=== PATIENT | male | born 1960 | race Caucasian/White ===

== ENCOUNTER 2016-10-26 07:59 | Emergency (ER) | payer MEDICAID ==
[~2016-10-26] VITALS: Ht 185.4 cm; Wt 65.8 kg
[2016-10-26 08:05] VITALS: BP 138/97
[2016-10-26] MEDS ORDERED: LIDOCAINE 1% HCL (LOCAL ANESTH.) INJ 20ML MDV IN ONE (08:15)
[2016-10-26] MEDS ORDERED: NEOMYCIN-BACITRACIN-POLYM UNITDOSE PKG TOP OINT TOP ONE (08:30)
== END 2016-10-26 08:52 | disposition home or self-care (01) ==
LOC: ER 07:59
DX: S51.811A Laceration without foreign body of right forearm, initial encounter (principal); Z88.0 Allergy status to penicillin; J45.909 Unspecified asthma, uncomplicated; F17.210 Nicotine dependence, cigarettes, uncomplicated; F12.10 Cannabis abuse, uncomplicated; W18.39XA Other fall on same level, initial encounter; Y93.89 Activity, other specified; Y92.89 Other specified places as the place of occurrence of the external cause; Y99.8 Other external cause status
CPT/HCPCS: 12002; 99283; J2001

== ENCOUNTER 2017-07-18 12:41 | Emergency (ER) | payer MEDICAID ==
[~2017-07-18] VITALS: Ht 185.4 cm; Wt 67.1 kg
[2017-07-18 12:59] VITALS: BP 144/101
== END 2017-07-18 14:39 | disposition home or self-care (01) ==
LOC: ER 12:44
DX: S76.012A Strain of muscle, fascia and tendon of left hip, initial encounter (principal); S76.912A Strain of unspecified muscles, fascia and tendons at thigh level, left thigh, initial encounter; J45.909 Unspecified asthma, uncomplicated; F17.210 Nicotine dependence, cigarettes, uncomplicated; M79.89 Other specified soft tissue disorders; V43.52XA Car driver injured in collision with other type car in traffic accident, initial encounter; Y93.89 Activity, other specified; Y92.89 Other specified places as the place of occurrence of the external cause; Y99.8 Other external cause status; Z88.0 Allergy status to penicillin
CPT/HCPCS: 72170

== ENCOUNTER 2018-06-23 09:02 | Emergency (ER) | payer SELFPAY ==
[~2018-06-23] VITALS: Ht 177.8 cm; Wt 77.1 kg
[2018-06-23 10:07] LABS: Lymphocytes # (auto) 2.2 uL
[2018-06-23 10:09] LABS: Basophils # (auto) 0.1 uL; Basophils % (auto) 1.1 % (0.0-2.0); Eosinophils # (auto) 0.2 uL; Eosinophils % (auto) 3.2 % (0.0-7.0); Hematocrit 49.4 % (41.0-53.0); Hemoglobin 16.7 g/dL (13.5-17.5); Lymphocytes % (auto) 31.9 % (10.0-50.0); Mean Corpuscular Hemoglobin 34.6 pg (28.0-32.0); Mean Corpuscular Hgb Conc. 33.8 g/dL (32.0-36.0); Mean Corpuscular Volume 102.3 fL (80.0-100.0); Monocytes # (auto) 0.7 uL; Monocytes % (auto) 9.5 % (0.0-12.0); Neutrophils # (auto) 3.8 uL; Neutrophils % (auto) 54.3 % (37.0-80.0); Nucleated Red Blood Cells % 0.1 %; Platelet Count (auto) 274 10^3/uL (140-450); Red Blood Cells 4.83 10^6/uL (4.5-5.90)
[2018-06-23 10:48] LABS: Albumin 3.7 g/dL (3.4-5.0); BUN/Creatinine Ratio 19.6; Calcium 8.2 mg/dL (8.5-10.1); Magnesium 2.6 mg/dL (1.6-2.6); Potassium 3.9 mmol/L (3.5-5.1); Salicylate 2.6 mg/dL (2.8-20.0)
[2018-06-23 10:50] LABS: Acetaminophen < 2.0 ug/mL (10-30)
[2018-06-23 10:51] LABS: Bilirubin, Total 0.6 mg/dL (0.2-1.0); Total Protein 6.9 g/dL (6.4-8.2)
[2018-06-23] MEDS ORDERED: SODIUM CHLORIDE 0.9% 1,000 ML IV ONE ×2 (10:59)
[2018-06-23] MEDS ORDERED: LORazepam 2MG/ML-1ML VIAL IV ONE (11:00)
[2018-06-23] MEDS ORDERED: IBUPROFEN 800 MG TAB PO ONE (11:15)
[2018-06-23 11:43] LABS: Amphetamine Screen, Urine POSITIVE (NEGATIVE); Cannabinoid Screen, Urine POSITIVE (NEGATIVE)
[2018-06-23 11:52] LABS: Barbiturate Scree,Urine NEGATIVE (NEGATIVE); Benzodiazephine Screen, Urine NEGATIVE (NEGATIVE); Cocaine Screen, Urine NEGATIVE (NEGATIVE); Opiate Scree,Urine NEGATIVE (NEGATIVE); Phencyclidine Screen, Urine NEGATIVE (NEGATIVE)
[2018-06-23 15:08] VITALS: BP 139/79
== END 2018-06-23 19:00 | disposition home or self-care (01) ==
LOC: ER 09:02 → EDBD 09:02 → ER 19:00
DX: F10.920 Alcohol use, unspecified with intoxication, uncomplicated (principal); J45.909 Unspecified asthma, uncomplicated; F17.210 Nicotine dependence, cigarettes, uncomplicated; F12.10 Cannabis abuse, uncomplicated; Z88.0 Allergy status to penicillin; Y90.0 Blood alcohol level of less than 20 mg/100 ml
CPT/HCPCS: 36415; 80053; 80307; 80320; 80329; 83735; 85025; 96374; 99283; J2060; J7030

== ENCOUNTER 2019-03-31 18:10 | Emergency (ER) | payer MEDICAID, OTHER ==
[~2019-03-31] VITALS: Ht 185.4 cm; Wt 68.0 kg
[2019-03-31 21:59] VITALS: BP 123/89
[2019-03-31] MEDS ORDERED: CLINDAMYCIN 600 MG/4 ML VL IM ONE (22:45)
[2019-03-31] MEDS ORDERED: CLINDAMYCIN 600 MG/4 ML VL ONE ×4 (23:00)
== END 2019-03-31 23:36 | disposition home or self-care (01) ==
LOC: ER 18:10
DX: S90.414A Abrasion, right lesser toe(s), initial encounter (principal); J06.9 Acute upper respiratory infection, unspecified; J45.909 Unspecified asthma, uncomplicated; F17.210 Nicotine dependence, cigarettes, uncomplicated; Z88.0 Allergy status to penicillin; X58.XXXA Exposure to other specified factors, initial encounter; Y93.89 Activity, other specified; Y92.89 Other specified places as the place of occurrence of the external cause; Y99.8 Other external cause status
CPT/HCPCS: 71045; 73630; 96372

== ENCOUNTER 2021-05-03 13:06 | Emergency (ER) | payer OTHER ==
[~2021-05-03] VITALS: Ht 185.4 cm; Wt 70.3 kg
[2021-05-03 14:23] VITALS: BP 140/91
[2021-05-03] MEDS ORDERED: HYDROcodone-ACET 7.5/325MG TAB PO ONE (15:15)
[2021-05-04] MEDS ORDERED: LEVO500T31 PO (09:12)
[2021-05-04] MEDS ORDERED: TRAM-297 PO (09:12)
[2021-05-04] MEDS ORDERED: PRED20TA2 PO (09:12)
== END 2021-05-03 17:27 | disposition home or self-care (01) ==
LOC: ER 13:06
DX: S22.43XA Multiple fractures of ribs, bilateral, initial encounter for closed fracture (principal); J18.9 Pneumonia, unspecified organism; J44.9 Chronic obstructive pulmonary disease, unspecified; F17.210 Nicotine dependence, cigarettes, uncomplicated; Z88.0 Allergy status to penicillin; Y04.2XXA Assault by strike against or bumped into by another person, initial encounter; Y93.89 Activity, other specified; Y92.89 Other specified places as the place of occurrence of the external cause; Y99.8 Other external cause status
CPT/HCPCS: 71111; 71250

== ENCOUNTER 2021-05-04 08:50 | Emergency (ER) | payer OTHER ==
[~2021-05-04] VITALS: Ht 185.4 cm; Wt 70.3 kg
[2021-05-04] MEDS ORDERED: PRED20TA2 PO (09:12)
[2021-05-04] MEDS ORDERED: LEVO500T31 PO (09:12)
[2021-05-04] MEDS ORDERED: TRAM-297 PO (09:12)
[2021-05-04 09:19] VITALS: BP 139/86
== END 2021-05-04 09:24 | disposition home or self-care (01) ==
LOC: ER 08:50
DX: S22.43XS Multiple fractures of ribs, bilateral, sequela (principal); J44.9 Chronic obstructive pulmonary disease, unspecified; J18.9 Pneumonia, unspecified organism; F17.210 Nicotine dependence, cigarettes, uncomplicated; F12.10 Cannabis abuse, uncomplicated; Z88.0 Allergy status to penicillin; X58.XXXS Exposure to other specified factors, sequela

== ENCOUNTER 2021-05-08 20:52 | Emergency (ER) | payer OTHER ==
[~2021-05-08] VITALS: Ht 182.9 cm; Wt 77.1 kg
[~2021-05-08 20:52] MED LIST: LEVO500T31 PO; PRED20TA2 PO; TRAM-297 PO
[2021-05-08 20:56] VITALS: BP 0/0
== END 2021-05-08 21:00 ==
LOC: EDBD 20:52 → ER 20:55
DX: I46.9 Cardiac arrest, cause unspecified (principal); Z88.0 Allergy status to penicillin
CPT/HCPCS: 92950